=== PATIENT | male | born 1995 | race Caucasian/White ===

== ENCOUNTER → 2022-01-07 | Emergency (ER) | payer OTHER ==
[~2022-01-07] VITALS: Ht 177.8 cm; Wt 72.6 kg
[~2022-01-07] MED LIST: MUPIROCIN15 GM TOP
== END ==
LOC: ER 18:57
DX: N48.89 Other specified disorders of penis (principal)

== ENCOUNTER 2022-07-18 06:52 | Emergency (ER) | payer OTHER ==
[~2022-07-18] VITALS: Ht 180.3 cm; Wt 72.6 kg
[2022-07-18] MEDS ORDERED: AMOX-CLAV 875-1 EACH PO ×2 (12:07→12:09)
== END 2022-07-18 13:39 | disposition home or self-care (01) ==
LOC: ER 06:52
DX: S01.92XA Laceration with foreign body of unspecified part of head, initial encounter (principal); W18.30XA Fall on same level, unspecified, initial encounter; Y93.9 Activity, unspecified; Y92.9 Unspecified place or not applicable

== ENCOUNTER 2024-06-11 20:40 | Emergency (ER) | payer OTHER ==
[~2024-06-11] VITALS: Ht 175.3 cm; Wt 90.7 kg
[~2024-06-11 20:40] MED LIST changes: +AMOX-CLAV 875-1 EACH PO
[2024-06-11] MEDS ORDERED: TETANUS IMMUNE GLOBULIN 250 U/SYR DISP.SYRIN IM STA (21:19)
[2024-06-11] MEDS ORDERED: AMOX1TAB5 PO (21:46)
[2024-06-11] MEDS ORDERED: TETANUS & DIPHTHERIA TOX,ADULT 0.5 ML VIAL IM ONE (22:15)
== END 2024-06-11 22:16 | disposition home or self-care (01) ==
LOC: ER 20:42
DX: S61.258A Open bite of other finger without damage to nail, initial encounter (principal); W54.0XXA Bitten by dog, initial encounter; Y93.89 Activity, other specified; Y92.832 Beach as the place of occurrence of the external cause; Y99.8 Other external cause status